=== PATIENT | female | born 1960 | race Hispanic/Latino ===

== ENCOUNTER 2017-10-30 07:08 | Day surgery (SDC) | payer BC ==
[2012-11-22 10:29] VITALS: BMI 28.3
[2017-10-30] MEDS ORDERED: Propofol 10 mg/ml Inj (20 ML) ONE (07:52)
[2017-10-30] MEDS ORDERED: Lidocaine 1% Inj (20ml) ONE (07:52)
[2017-10-30] MEDS ORDERED: Midazolam 2 MG/2 ML VIAL ONE (08:07)
[2017-10-30] MEDS ORDERED: Sodium Chloride 0.9% 1,000 ML IV SCH (08:45)
[2017-10-30 09:31] VITALS: BP 137/76; PULSE 61; RESP 16; TEMP 98; O2SAT 99
== END 2017-10-30 09:46 | disposition home or self-care (01) ==
LOC: ENDO 07:08
PROVIDERS: ATTEND Internal Medicine Gastroenterology
DX: Z12.11 Encounter for screening for malignant neoplasm of colon (principal); D12.0 Benign neoplasm of cecum; D12.4 Benign neoplasm of descending colon; K57.30 Diverticulosis of large intestine without perforation or abscess without bleeding; K64.8 Other hemorrhoids; Z80.0 Family history of malignant neoplasm of digestive organs
CPT/HCPCS: 45384; 45385; 88305; J2250; J2704; J7030; J7040